=== PATIENT | male | born 1950 | race Caucasian/White ===

== ENCOUNTER 2020-03-16 17:16 | Inpatient (IN) | payer MEDICARE, OTHER ==
[~2020-03-16] VITALS: Ht 180.3 cm; Wt 101.8 kg
--- NOTE | 2020-03-16 17:57 | NUR ---
PT TO IMAGING
--- NOTE | 2020-03-16 18:10 | NUR ---
PT RETURNED FROM IMAGING. UPRIGHT ON GURMIKAELA, NAD, VSS. PT DENIES ANY NEEDS AT THIS TIME. CONTINUOUS PULSE OX AND CARDIAC MONITORING IN PLACE. CALL LIGHT AND PERSONAL BELONGINGS WITHIN REACH, WILL CONTINUE TO MONITOR.
[2020-03-16 18:25] LABS: BASOPHILS % (AUTO) 1 % (0-1); EOSINOPHILS % (AUTO) 1 % (1-7); LYMPHOCYTES % (AUTO) 12 % (22-44); MEAN CORPUSCULAR HEMOGLOBIN 31.7 pg (27.5-34.5); MEAN CORPUSCULAR HGB CONC 33.8 g/dL (33.2-36.2); MEAN PLATELET VOLUME 8.7 fL (7.4-10.4); MONOCYTES % (AUTO) 13 % (2-9); NEUTROPHILS % (AUTO) 73 % (42-75); PLATELET COUNT 146 x10^3/uL (130-400); RED BLOOD COUNT 4.92 x10^6/uL (4.38-5.82); RED CELL DISTRIBUTION WIDTH 13.9 % (9.4-14.8)
[2020-03-16 18:26] LABS: MD NO
[2020-03-16 18:31] LABS: ALANINE AMINOTRANSFERASE 28 U/L (12-78); ALBUMIN 3.3 g/dL (3.4-5.0); ANION GAP 7 mmol/L (5-15); CALCIUM 8.6 mg/dL (8.5-10.1); CHLORIDE 107 mmol/L (98-107)
[2020-03-16 18:36] LABS: ALKALINE PHOSPHATASE 66 U/L (45-117); BILIRUBIN,TOTAL 0.9 mg/dL (0.2-1.0); CREATININE 1.21 mg/dL (0.7-1.3); TOTAL PROTEIN 7.3 g/dL (6.4-8.2)
--- NOTE | 2020-03-16 18:56 | NUR ---
BEDSIDE REPORT GIVEN TO NEVA MURPHY
[2020-03-16] MEDS ORDERED: HEPARIN 5,000 UNITS/ML, 1ML IV ONE (20:30)
[2020-03-16] MEDS ORDERED: MORPHINE SULFATE 4 MG/ML, 1ML IVPush PRN (20:30)
[2020-03-16] MEDS ORDERED: HEPARIN 25,000 UNITS/250ML PMX 250 ML IV PRN (20:30)
[2020-03-16] MEDS ORDERED: HEPARIN 5,000 UNITS/ML, 1ML IV PRN (20:30)
[2020-03-16] MEDS ORDERED: HEPARIN 5,000 UNITS/ML, 1ML ONE (20:51)
[2020-03-16] MEDS ORDERED: HEPARIN 25,000 UNITS/250ML PMX 250 ML ONE (20:51)
[2020-03-16] MEDS ORDERED: MORPHINE SULFATE 4 MG/ML, 1ML ONE (20:52)
[2020-03-16 21:22] LABS: TROPONIN I < 0.015 ng/mL (0.000-0.045)
--- NOTE | 2020-03-16 21:36 | NUR ---
report given to KATHERINE Lane.
[2020-03-16 21:50] VITALS: BP 126/79
[2020-03-16] MEDS ORDERED: MELATONIN 5 MG TABLET PO PRN (22:00)
[2020-03-16] MEDS ORDERED: DOCUSATE 100 MG CAPSULE PO PRN (22:00)
[2020-03-16] MEDS ORDERED: ENALAPRILAT 1.25 MG/ML, 2ML IVPush PRN (22:00)
[2020-03-16] MEDS ORDERED: LIDODERM 5% PATCH TD PRN (22:00)
[2020-03-16] MEDS ORDERED: ACETAMINOPHEN 325 MG TABLET PO PRN (22:00)
[2020-03-16] MEDS ORDERED: OMNIPAQUE 350 MG/ML, 75ML BOTTLE ONE (23:08)
[2020-03-17 02:21] VITALS: BP 119/77
[2020-03-17 03:18] LABS: BASOPHILS % (AUTO) 1 % (0-1); EOSINOPHILS % (AUTO) 3 % (1-7); LYMPHOCYTES % (AUTO) 17 % (22-44); MEAN CORPUSCULAR HGB CONC 33.8 g/dL (33.2-36.2); MEAN PLATELET VOLUME 8.6 fL (7.4-10.4); MONOCYTES % (AUTO) 13 % (2-9); NEUTROPHILS % (AUTO) 67 % (42-75); PLATELET COUNT 151 x10^3/uL (130-400); RED BLOOD COUNT 4.72 x10^6/uL (4.38-5.82); RED CELL DISTRIBUTION WIDTH 13.7 % (9.4-14.8)
[2020-03-17 03:19] LABS: MD NO
[2020-03-17 03:28] LABS: ANION GAP 5 mmol/L (5-15); CALCIUM 8.2 mg/dL (8.5-10.1); CHLORIDE 107 mmol/L (98-107); CREATININE 1.15 mg/dL (0.7-1.3)
[2020-03-17] MEDS ORDERED: ASCO-219 PO (06:34)
[2020-03-17] MEDS ORDERED: VIT1TABL67 PO (06:34)
[2020-03-17] MEDS ORDERED: UBID50TA3 PO (06:34)
[2020-03-17 08:30] VITALS: BP 110/74
[2020-03-17 14:39] VITALS: BP 113/72
[2020-03-17] MEDS ORDERED: HEPARIN 25,000 UNITS/250ML PMX 250 ML IV PRN (20:30)
[2020-03-17] MEDS: ENOXAPARIN 100 MG/ML SQ SCH (21:26)
[2020-03-17 21:34] VITALS: BP 119/77
[2020-03-18 03:38] VITALS: BP 128/72
[2020-03-18 05:29] LABS: BASOPHILS % (AUTO) 1 % (0-1); EOSINOPHILS % (AUTO) 2 % (1-7); LYMPHOCYTES % (AUTO) 13 % (22-44); MEAN CORPUSCULAR HEMOGLOBIN 32.2 pg (27.5-34.5); MEAN PLATELET VOLUME 8.7 fL (7.4-10.4); MONOCYTES % (AUTO) 14 % (2-9); NEUTROPHILS % (AUTO) 71 % (42-75); PLATELET COUNT 162 x10^3/uL (130-400); RED BLOOD COUNT 4.64 x10^6/uL (4.38-5.82); RED CELL DISTRIBUTION WIDTH 13.5 % (9.4-14.8)
[2020-03-18 05:34] LABS: ALANINE AMINOTRANSFERASE 30 U/L (12-78); ALBUMIN 2.9 g/dL (3.4-5.0); ANION GAP 5 mmol/L (5-15); CALCIUM 8.3 mg/dL (8.5-10.1); CHLORIDE 105 mmol/L (98-107); CREATININE 1.27 mg/dL (0.7-1.3)
[2020-03-18 05:35] LABS: MD NO
[2020-03-18 05:36] LABS: ALKALINE PHOSPHATASE 69 U/L (45-117); BILIRUBIN,TOTAL 0.7 mg/dL (0.2-1.0); TOTAL PROTEIN 7.2 g/dL (6.4-8.2)
[2020-03-18 07:59] VITALS: BP 117/74
[2020-03-18] MEDS: ENOXAPARIN 100 MG/ML SQ SCH (08:18)
[2020-03-18] MEDS ORDERED: MELA5TAB14 PO (11:14)
[2020-03-18] MEDS ORDERED: APIX5TAB PO (11:14)
[2020-03-18] MEDS ORDERED: LIDO700A20 TD (11:14)
[2020-03-18] MEDS ORDERED: HYDR-3240 PO (14:09)
[2020-03-18] MEDS ORDERED: APIXABAN 5 MG TABLET PO SCH (21:00)
== END 2020-03-18 13:59 | disposition home health service (06) | DRG 299 ==
LOC: ED 17:50 → EDIP 20:10 → 5SO 21:45
PROVIDERS: ADMIT Family Medicine; ATTEND Internal Medicine
DX: I82.412 Acute embolism and thrombosis of left femoral vein (principal); I26.99 Other pulmonary embolism without acute cor pulmonale; E78.5 Hyperlipidemia, unspecified; Z80.42 Family history of malignant neoplasm of prostate; Z82.5 Family history of asthma and other chronic lower respiratory diseases; Z83.3 Family history of diabetes mellitus; Z85.820 Personal history of malignant melanoma of skin; Z87.891 Personal history of nicotine dependence
CPT/HCPCS: 36415; 71045; 71275; 80048; 80053; 83880; 84484; 85025; 85520; 93005; 93306; G0378; J1644; J1650; Q9967; J2270

== ENCOUNTER 2020-12-11 17:26 | Emergency (ER) | payer MEDICARE, OTHER ==
[~2020-12-11] VITALS: Ht 180.3 cm; Wt 107.3 kg
[~2020-12-11 17:26] MED LIST: APIX5TAB PO; ASCO-219 PO; HYDR-2214 PO; LIDO700A20 TD; MELA5TAB14 PO; UBID50TA3 PO; VIT1TABL67 PO
[2020-12-11 17:38] VITALS: BP 160/94
[2020-12-11 18:55] LABS: BASOPHILS % (AUTO) 1 % (0-1); EOSINOPHILS % (AUTO) 4 % (1-7); LYMPHOCYTES % (AUTO) 20 % (22-44); MEAN CORPUSCULAR HEMOGLOBIN 32.9 pg (27.5-34.5); MEAN CORPUSCULAR HGB CONC 35.1 g/dL (33.2-36.2); MEAN PLATELET VOLUME 9.4 fL (7.4-10.4); MONOCYTES % (AUTO) 10 % (2-9); NEUTROPHILS % (AUTO) 65 % (42-75); PLATELET COUNT 201 x10^3/uL (130-400); RED BLOOD COUNT 4.95 x10^6/uL (4.38-5.82); RED CELL DISTRIBUTION WIDTH 13.8 % (9.4-14.8)
[2020-12-11 19:07] LABS: ALANINE AMINOTRANSFERASE 36 U/L (12-78); ANION GAP 5 mmol/L (5-15); CALCIUM 8.3 mg/dL (8.5-10.1); CHLORIDE 110 mmol/L (98-107); CREATININE 1.24 mg/dL (0.7-1.3)
[2020-12-11 19:09] LABS: ALKALINE PHOSPHATASE 78 U/L (45-117); BILIRUBIN,TOTAL 0.4 mg/dL (0.2-1.0); TOTAL PROTEIN 6.9 g/dL (6.4-8.2)
== END 2020-12-11 20:10 | disposition home or self-care (01) ==
LOC: ED 17:56
DX: M25.461 Effusion, right knee (principal); M25.561 Pain in right knee; Z86.718 Personal history of other venous thrombosis and embolism
CPT/HCPCS: 29505; 36415; 80053; 85025; 99285